=== PATIENT | male | born 1985 | race Caucasian/White ===

== ENCOUNTER 2022-02-04 11:53 | Inpatient (IN) | payer OTHER ==
[~2022-02-04] VITALS: Ht 180.3 cm; Wt 93.6 kg
[2022-02-04] MEDS ORDERED: LITH300T29 PO (12:28)
[2022-02-04 12:31] LABS: COVID AG,FIA SOURCE NASOPHARYNGEAL
[2022-02-04 12:35] LABS: BASOPHILS % (AUTO) 0.2 % (0.0-2.0); EOSINOPHILS % (AUTO) 1.3 % (1.0-6.0); HEMATOCRIT 44.6 % (41-53); HEMOGLOBIN 15.1 g/dL (13.5-17.5); MEAN CORPUSCULAR HEMOGLOBIN 31.5 pg (26.0-34.0); MEAN CORPUSCULAR HGB CONC 33.8 G/dL (31.0-37.0); MEAN CORPUSCULAR VOLUME 93 fL (80-100); MONOCYTES # (AUTO) 0.8 K/uL (0.1-1.0); MONOCYTES % (AUTO) 8.1 % (2.0-9.0); NEUTROPHILS # (AUTO) 5.9 K/uL (1.8-7.7); NEUTROPHILS % (AUTO) 60.4 % (40.0-70.0); PLATELET COUNT (AUTO) 258 K/uL (150-450); RED BLOOD CELL COUNT(AUTO) 4.79 MIL/uL (4.50-5.90); RED CELL DISTRIBUTION WIDTH 13.7 % (11.5-14.5)
[2022-02-04 12:42] LABS: ANION GAP 9 mmol/L (8-16); CALCIUM, TOTAL 9.1 mg/dL (8.8-10.5); CARBON DIOXIDE 28 mmol/L (22-29); CHLORIDE 103 mmol/L (98-107); CREATININE 0.95 mg/dL (0.60-1.30); GLOMERULAR FILTR. RATE CALC > 60 mL/min (>60); GLUCOSE,RANDOM 90 mg/dL (70-110); POTASSIUM 3.5 mmol/L (3.5-5.1); SODIUM SERUM 140 mmol/L (136-145); UREA NITROGEN, BLOOD 14 mg/dL (7-18)
[2022-02-04 12:48] LABS: ALANINE AMINOTRANSFERASE 18 U/L (12-78); ALBUMIN 4.4 g/dL (3.4-5.0); ALKALINE PHOSPHATASE 51 U/L (46-116); ASPARTATE AMINOTRANSFERASE 14 U/L (15-37); BILIRUBIN,TOTAL 0.7 mg/dL (0.1-1.0); TOTAL PROTEIN, SERUM 7.8 g/dL (6.4-8.2)
[2022-02-04 16:31] LABS: AMPHET/METH SCREEN,URINE NEGATIVE (NEGATIVE); BARBITURATE SCREEN, URINE NEGATIVE (NEGATIVE); BENZODIAZEPINES SCREEN,URINE NEGATIVE (NEGATIVE); CANNABINOID SCREEN,URINE POSITIVE (NEGATIVE); COCAINE SCREEN,URINE NEGATIVE (NEGATIVE); METHADONE SCREEN, URINE NEGATIVE (NEGATIVE); OPIATE SCREEN,URINE NEGATIVE (NEGATIVE)
[2022-02-04 16:32] LABS: PHENCYCLIDINE SCREEN,URINE NEGATIVE (NEGATIVE)
[2022-02-04 17:32] VITALS: BP 152/92
[2022-02-04] MEDS ORDERED: PNEUMOCOCCAL VACCINE POLYVALENT 0.5 ML VIAL [PPSV23] IM. ONE (17:45)
[2022-02-04] MEDS: NICOTINE POLACRILEX 2 MG LOZENGE PO PRN (18:24)
[2022-02-04 19:52] VITALS: BP 150/88
[2022-02-04] MEDS: LORazepam 2 MG TABLET PO PRN (20:58)
[2022-02-05 00:06] VITALS: BP 95/56
[2022-02-05] MEDS: ZOLPIDEM TARTRATE 10 MG TABLET PO PRN (02:15)
[2022-02-05 03:47] VITALS: BP 116/75
[2022-02-05] MEDS ORDERED: HALOPERIDOL LACTATE 5 MG/ML VIAL IM ONE ×3 (05:45→16:00)
[2022-02-05] MEDS ORDERED: LORazepam 2 MG/ML VIAL IM ONE ×3 (05:45→16:00)
[2022-02-05] MEDS ORDERED: DiphenhydrAMINE HCL 50 MG/ML VIAL IM ONE ×3 (05:45→16:00)
[2022-02-05] MEDS: HALOPERIDOL 5 MG TABLET PO PRN ×2 (05:59→10:28)
[2022-02-05] MEDS: LORazepam 2 MG TABLET PO PRN ×2 (05:59→10:27)
[2022-02-05] MEDS ORDERED: MAGNESIUM HYDROXIDE SUSPENSION 30 ML UDCUP PO PRN (07:00)
[2022-02-05] MEDS ORDERED: ALBUTEROL SULFATE HFA 90 MCG/PUFF 8 GM INHALER IH PRN (07:00)
[2022-02-05] MEDS ORDERED: ONDANSETRON HCL 4 MG TABLET PO PRN (07:00)
[2022-02-05] MEDS ORDERED: MAG HYDROX/AL HYDROX/SIMETH ES 30 ML SUSPENSION UDCUP PO PRN (07:00)
[2022-02-05] MEDS ORDERED: LOPERAMIDE HCL 2 MG CAPSULE PO PRN (07:00)
[2022-02-05] MEDS ORDERED: ACETAMINOPHEN 325 MG TABLET PO PRN (07:00)
[2022-02-05] MEDS ORDERED: NICOTINE 14 MG/24 HOUR PATCH TD PRN (07:00)
[2022-02-05] MEDS ORDERED: CloNIDine HCL 0.1 MG TABLET PO PRN (07:00)
[2022-02-05] MEDS ORDERED: DOCUSATE SODIUM 100 MG CAPSULE PO PRN (07:00)
[2022-02-05] MEDS ORDERED: GuaiFENesin/D-METHORPHAN [SUGAR-FREE] 200-20MG/10 ML SYRUP UDCUP PO PRN (07:00)
[2022-02-05] MEDS: NICOTINE POLACRILEX 2 MG LOZENGE PO PRN (08:21)
[2022-02-05 08:36] VITALS: BP 142/66
[2022-02-05] MEDS: QUEtiapine FUMARATE 200 MG TABLET PO SCH (17:35)
[2022-02-05] MEDS: LITHIUM CARBONATE 300 MG ER TABLET PO SCH (17:36)
[2022-02-06] MEDS: IBUPROFEN 400 MG TABLET PO PRN (01:00)
[2022-02-06] MEDS: LORazepam 2 MG TABLET PO PRN ×2 (01:01→16:15)
[2022-02-06] MEDS: HALOPERIDOL 5 MG TABLET PO PRN ×2 (01:01→16:16)
[2022-02-06] MEDS ORDERED: DiphenhydrAMINE HCL 50 MG/ML VIAL ONE (06:26)
[2022-02-06] MEDS ORDERED: LORazepam 2 MG/ML VIAL ONE (06:26)
[2022-02-06] MEDS ORDERED: ChlorproMAZINE HCL 50 MG/2 ML AMP IM ONE ×2 (06:30→08:15)
[2022-02-06] MEDS ORDERED: LORazepam 2 MG/ML VIAL IM ONE ×2 (06:30→21:30)
[2022-02-06] MEDS ORDERED: DiphenhydrAMINE HCL 50 MG/ML VIAL IM ONE ×3 (06:30→21:30)
[2022-02-06] MEDS ORDERED: HALOPERIDOL LACTATE 5 MG/ML VIAL IM ONE ×2 (08:15→21:30)
[2022-02-06] MEDS: QUEtiapine FUMARATE 200 MG TABLET PO SCH ×2 (08:25→16:15)
[2022-02-06] MEDS: LITHIUM CARBONATE 300 MG ER TABLET PO SCH ×2 (08:26→16:15)
[2022-02-06 08:45] VITALS: BP 129/75
[2022-02-06 20:02] VITALS: BP 140/92
[2022-02-07] MEDS: HALOPERIDOL 5 MG TABLET PO PRN ×3 (03:21→16:05)
[2022-02-07] MEDS: LORazepam 2 MG TABLET PO PRN ×3 (03:21→16:05)
[2022-02-07] MEDS ORDERED: FluPHENAZine HCL 2.5 MG/ML INJ IM ONE ×4 (05:32→18:30)
[2022-02-07] MEDS ORDERED: LORazepam 2 MG/ML VIAL IM ONE ×3 (05:45→18:30)
[2022-02-07] MEDS ORDERED: DiphenhydrAMINE HCL 50 MG/ML VIAL IM ONE ×3 (05:45→18:30)
[2022-02-07 08:01] VITALS: BP 116/70
[2022-02-07] MEDS: LITHIUM CARBONATE 300 MG ER TABLET PO SCH ×2 (08:12→16:05)
[2022-02-07] MEDS: QUEtiapine FUMARATE 200 MG TABLET PO SCH ×2 (08:12→16:05)
[2022-02-07] MEDS: NICOTINE POLACRILEX 2 MG LOZENGE PO PRN (08:14)
[2022-02-07 20:22] VITALS: BP 128/56
[2022-02-07] MEDS: ZOLPIDEM TARTRATE 10 MG TABLET PO PRN (20:53)
[2022-02-08] MEDS: HYDROCORTISONE 2.5% 30 GM CREAM TP SCH ×2 (08:44→16:05)
[2022-02-08] MEDS: LITHIUM CARBONATE 300 MG ER TABLET PO SCH ×2 (08:44→16:05)
[2022-02-08] MEDS: LORazepam 2 MG TABLET PO PRN (08:45)
[2022-02-08] MEDS: QUEtiapine FUMARATE 200 MG TABLET PO SCH ×2 (08:45→16:05)
[2022-02-08 20:08] VITALS: BP 153/96
[2022-02-08] MEDS: NICOTINE POLACRILEX 2 MG LOZENGE PO PRN (20:22)
[2022-02-08] MEDS: ZOLPIDEM TARTRATE 10 MG TABLET PO PRN (20:22)
[2022-02-08 23:30] VITALS: BP 142/89
[2022-02-08] MEDS: IBUPROFEN 400 MG TABLET PO PRN (23:33)
[2022-02-09 04:32] VITALS: BP 157/86
[2022-02-09 08:00] VITALS: BP 152/79
[2022-02-09] MEDS: HYDROCORTISONE 2.5% 30 GM CREAM TP SCH ×2 (08:05→16:30)
[2022-02-09] MEDS: LITHIUM CARBONATE 300 MG ER TABLET PO SCH ×2 (08:05→16:08)
[2022-02-09] MEDS: QUEtiapine FUMARATE 200 MG TABLET PO SCH ×2 (08:05→16:07)
[2022-02-09] MEDS: HYDROCORTISONE 25 MG RECTAL SUPPOSITORY PR SCH ×2 (09:00→16:30)
[2022-02-09] MEDS: LORazepam 2 MG TABLET PO PRN (11:36)
[2022-02-09] MEDS: NICOTINE POLACRILEX 2 MG LOZENGE PO PRN (11:36)
[2022-02-09 20:09] VITALS: BP 121/89
[2022-02-10] MEDS: ZOLPIDEM TARTRATE 10 MG TABLET PO PRN ×2 (01:04→22:19)
[2022-02-10 02:52] VITALS: BP 128/80
[2022-02-10] MEDS: IBUPROFEN 400 MG TABLET PO PRN (02:57)
[2022-02-10] MEDS: QUEtiapine FUMARATE 200 MG TABLET PO SCH ×2 (08:17→17:09)
[2022-02-10] MEDS: LORazepam 2 MG TABLET PO PRN ×3 (08:17→22:19)
[2022-02-10] MEDS: HYDROCORTISONE 2.5% 30 GM CREAM TP SCH ×2 (08:17→17:09)
[2022-02-10] MEDS: LITHIUM CARBONATE 300 MG ER TABLET PO SCH ×2 (08:17→17:09)
[2022-02-10] MEDS: HALOPERIDOL 5 MG TABLET PO PRN ×3 (08:17→22:19)
[2022-02-10] MEDS: HYDROCORTISONE 25 MG RECTAL SUPPOSITORY PR SCH ×3 (08:17→18:37)
[2022-02-10 08:24] VITALS: BP 176/89
[2022-02-10 08:29] VITALS: BP 100/63
[2022-02-10 08:35] VITALS: BP 176/89
[2022-02-10] MEDS: NICOTINE 21 MG/24 HOUR PATCH TD SCH (10:17)
[2022-02-10] MEDS: PETROLATUM,WHITE 28 GM JELLY TP PRN (20:03)
[2022-02-10 20:04] VITALS: BP 153/90
[2022-02-10] MEDS: NICOTINE POLACRILEX 2 MG LOZENGE PO PRN (23:09)
[2022-02-10] MEDS ORDERED: HYDROCORTISONE 25 MG RECTAL SUPPOSITORY PR ONE (23:15)
[2022-02-11] MEDS: IBUPROFEN 400 MG TABLET PO PRN (04:48)
[2022-02-11] MEDS: PETROLATUM,WHITE 28 GM JELLY TP PRN (04:56)
[2022-02-11] MEDS: NICOTINE 21 MG/24 HOUR PATCH TD SCH (08:06)
[2022-02-11] MEDS: HALOPERIDOL 5 MG TABLET PO PRN ×2 (08:06→16:21)
[2022-02-11] MEDS: LORazepam 2 MG TABLET PO PRN ×3 (08:06→20:27)
[2022-02-11] MEDS: HYDROCORTISONE 25 MG RECTAL SUPPOSITORY PR SCH ×2 (08:06→16:21)
[2022-02-11] MEDS: LITHIUM CARBONATE 300 MG ER TABLET PO SCH ×2 (08:06→16:21)
[2022-02-11] MEDS: QUEtiapine FUMARATE 200 MG TABLET PO SCH ×3 (08:06→20:12)
[2022-02-11] MEDS: HYDROCORTISONE 2.5% 30 GM CREAM TP SCH ×2 (08:07→16:21)
[2022-02-11 08:16] VITALS: BP 146/90
[2022-02-11 20:03] VITALS: BP 142/82
[2022-02-12 03:20] VITALS: BP 145/86
[2022-02-12] MEDS: HYDROCORTISONE 25 MG RECTAL SUPPOSITORY PR SCH ×2 (08:10→18:24)
[2022-02-12] MEDS: NICOTINE 21 MG/24 HOUR PATCH TD SCH (08:11)
[2022-02-12] MEDS: LITHIUM CARBONATE 300 MG ER TABLET PO SCH ×2 (08:11→16:30)
[2022-02-12] MEDS: LORazepam 2 MG TABLET PO PRN ×2 (08:11→16:30)
[2022-02-12] MEDS: HYDROCORTISONE 2.5% 30 GM CREAM TP SCH ×2 (08:11→18:24)
[2022-02-12] MEDS: TERBINAFINE HCL 250 MG TABLET PO SCH ×2 (09:00→14:58)
[2022-02-12 09:34] VITALS: BP 148/81
[2022-02-12] MEDS: NICOTINE POLACRILEX 2 MG LOZENGE PO PRN (13:19)
[2022-02-12] MEDS: HALOPERIDOL 5 MG TABLET PO PRN (16:30)
[2022-02-12] MEDS: QUEtiapine FUMARATE 200 MG TABLET PO SCH (20:20)
[2022-02-12] MEDS: ZOLPIDEM TARTRATE 10 MG TABLET PO PRN (20:20)
[2022-02-12 20:30] VITALS: BP 146/80
[2022-02-13] MEDS: NICOTINE POLACRILEX 2 MG LOZENGE PO PRN ×2 (07:11→16:06)
[2022-02-13 08:01] VITALS: BP 147/86
[2022-02-13] MEDS: HYDROCORTISONE 25 MG RECTAL SUPPOSITORY PR SCH ×2 (08:01→16:08)
[2022-02-13] MEDS: LITHIUM CARBONATE 300 MG ER TABLET PO SCH ×2 (08:07→16:05)
[2022-02-13] MEDS: NICOTINE 21 MG/24 HOUR PATCH TD SCH (08:08)
[2022-02-13] MEDS: TERBINAFINE HCL 250 MG TABLET PO SCH (08:08)
[2022-02-13] MEDS: HYDROCORTISONE 2.5% 30 GM CREAM TP SCH ×2 (08:08→16:08)
[2022-02-13] MEDS: HALOPERIDOL 5 MG TABLET PO PRN (08:09)
[2022-02-13] MEDS: LORazepam 2 MG TABLET PO PRN ×2 (08:09→16:49)
[2022-02-13 18:31] LABS: GLUCOMETER DEV NAME(LOC) POC.BV
[2022-02-13] MEDS: QUEtiapine FUMARATE 200 MG TABLET PO SCH (20:02)
[2022-02-13 20:17] VITALS: BP 139/84
[2022-02-13] MEDS: ZOLPIDEM TARTRATE 10 MG TABLET PO PRN (21:03)
[2022-02-14] MEDS: NICOTINE POLACRILEX 2 MG LOZENGE PO PRN (06:28)
[2022-02-14] MEDS: LITHIUM CARBONATE 300 MG ER TABLET PO SCH (08:03)
[2022-02-14] MEDS: TERBINAFINE HCL 250 MG TABLET PO SCH (08:04)
[2022-02-14] MEDS: HYDROCORTISONE 2.5% 30 GM CREAM TP SCH (08:04)
[2022-02-14] MEDS: HYDROCORTISONE 25 MG RECTAL SUPPOSITORY PR SCH (08:04)
[2022-02-14] MEDS: NICOTINE 21 MG/24 HOUR PATCH TD SCH (08:05)
[2022-02-14] MEDS: LORazepam 2 MG TABLET PO PRN (08:09)
[2022-02-14 08:36] VITALS: BP 161/101
[2022-02-14] MEDS: HALOPERIDOL 5 MG TABLET PO PRN (09:49)
[2022-02-14 10:00] VITALS: BP 142/78
[2022-02-14] MEDS ORDERED: LITH300C3 PO (10:40)
[2022-02-14] MEDS ORDERED: LITH300CRT PO ×2 (10:43→10:56)
[2022-02-14] MEDS ORDERED: QUET200T PO ×2 (10:45→10:56)
[2022-02-14] MEDS ORDERED: ANUSHCS PR ×2 (10:46→10:56)
[2022-02-14] MEDS ORDERED: TERB250T90 PO (10:46)
== END 2022-02-14 12:18 | disposition home or self-care (01) | DRG 885 ==
LOC: EMS 11:53 → B2S 15:14 → B3A 02-05 06:18
PROVIDERS: ADMIT Psychiatry & Neurology Psychiatry; ATTEND Psychiatry & Neurology Psychiatry
DX: F31.2 Bipolar disorder, current episode manic severe with psychotic features (principal); R45.851 Suicidal ideations; Z20.822 Contact with and (suspected) exposure to COVID-19; F17.210 Nicotine dependence, cigarettes, uncomplicated; F10.10 Alcohol abuse, uncomplicated; R03.0 Elevated blood-pressure reading, without diagnosis of hypertension; F19.10 Other psychoactive substance abuse, uncomplicated; Y90.9 Presence of alcohol in blood, level not specified; F12.10 Cannabis abuse, uncomplicated; Z79.899 Other long term (current) drug therapy
CPT/HCPCS: 80053; 80178; 85025; 90732; 99285; G0480; J1200; J1630; J2060; J3230; J3490; Q9967